=== PATIENT | male | born 1930 | race African-American/Black ===

== ENCOUNTER 2018-05-19 11:19 | Emergency (ER) | payer MEDICARE ==
[~2018-05-19] VITALS: Ht 175.3 cm; Wt 63.6 kg
[2018-05-19] MEDS ORDERED: [UNRECOGNIZED DRUG - REMARK] (11:21)
[2018-05-19] MEDS ORDERED: DiphenhydrAMINE HCL 25 MG CAPSULE PO ONE (12:30)
[2018-05-19] MEDS ORDERED: DEXAMETHASONE 4 MG TABLET PO ONE (12:30)
[2018-05-19] MEDS ORDERED: CEPHALEXIN MONOHYDRATE 500 MG CAPSULE PO ONE (12:30)
[2018-05-19] MEDS ORDERED: DiphenhydrAMINE/ZINC ACET 30 GM CREAM TP ONE (12:30)
[2018-05-19 13:27] VITALS: BP 128/65
== END 2018-05-19 13:28 | disposition home or self-care (01) ==
LOC: EMS 11:19
DX: S50.362A Insect bite (nonvenomous) of left elbow, initial encounter (principal); S50.361A Insect bite (nonvenomous) of right elbow, initial encounter; L08.9 Local infection of the skin and subcutaneous tissue, unspecified; Z91.041 Radiographic dye allergy status; W57.XXXA Bitten or stung by nonvenomous insect and other nonvenomous arthropods, initial encounter; Y93.89 Activity, other specified; Y92.89 Other specified places as the place of occurrence of the external cause; Y99.8 Other external cause status
CPT/HCPCS: 99284; J8540